=== PATIENT | male | born 1975 | race Caucasian/White ===

== ENCOUNTER 2016-12-14 14:25 | Emergency (ER) | payer OTHER ==
[2016-12-14 14:40] VITALS: BP 155/90; PULSE 60; TEMP 97.9; BMI 25.1
[2016-12-14] MEDS ORDERED: diazePAM 5 MG TABLET PO ONE (14:54)
[2016-12-14] MEDS ORDERED: KETOROLAC TROMETHAMINE 60 MG/2 ML VIAL IM ONE (14:54)
[2016-12-14] MEDS ORDERED: KETOROLAC TROMETHAMINE 60 MG/2 ML VIAL ONE (14:56)
[2016-12-14] MEDS ORDERED: diazePAM 5 MG TABLET ONE (14:57)
--- NOTE | 2016-12-14 15:03 | PDOC ---
History of Present Illness - General Chief Complaint: Pain, Acute Stated Complaint: NECK PAIN Time Seen by Provider: 12/14/16 14:34 History Source: Patient Exam Limitations: No Limitations - History of Present Illness Initial Comments: 12/14/16 14:57 41 yr male with stiff neck for 2 months worse when waking up 2 months ago. Pt states pain is worse when sleeping. Pt denies injury states he played basketball 3 days ago and now pain got worse. no meds taken for pain. no fever, no sore throat, no previous injury. Past History - Past Medical History Allergies/Adverse Reactions: Allergies Allergy/AdvReac Type Severity Reaction Status Date / Time No Known Allergies Allergy Verified 12/14/16 14:35 Home Medications: Ambulatory Orders Cyclobenzaprine HCl [Flexeril 10 mg] 5 mg PO TID PRN #21 tablet 12/14/16 Naproxen [Naprosyn -] 500 mg PO BID PRN #14 tablet 12/14/16 Other medical history: denies - Family Disease History Comment:: 12/14/16 14:59 none - Psycho/Social/Smoking Cessation Hx Anxiety: No Suicidal Ideation: No Smoking History: Never smoked Have you smoked in the past 12 months: No Information on smoking cessation initiated: No Hx Alcohol Use: Yes (occasional) Drug/Substance Use Hx: No Substance Use Type: None Trauma Specific PMHX - Complaint Specific PMHX Arthritis: No Back Injury: No Neck Injury: No Hx Sacro Iliac Joint Dysfunction: No Review of Systems - Review of Systems Able to Perform ROS?: Yes Is the patient limited Lithuanian proficient: No Constitutional: No: Symptoms Reported HEENTM: No: Symptoms Reported Respiratory: No: Symptoms reported Cardiac (ROS): No: Symptoms Reported ABD/GI: No: Symptoms Reported : No: Symptoms Reported Musculoskeletal: Yes: See HPI, Neck Pain Integumentary: No: Symptoms Reported *Physical Exam - Vital Signs Last Vital Signs Temp Pulse Resp BP Pulse Ox 97.9 F 60 18 155/90 100 12/14/16 14:28 12/14/16 14:28 12/14/16 14:28 12/14/16 14:28 12/14/16 14:28 - Physical Exam General Appearance: Yes: Nourished, Appropriately Dressed HEENT: positive: EOMI, MARTIN, Normal ENT Inspection, TMs Normal, Pharynx Normal Neck: positive: Supple, Decreased range of motion, Tender lateral. negative: Tender, Rigidity, Tender midline Respiratory/Chest: positive: Chest Tender, Lungs Clear, Normal Breath Sounds Cardiovascular: positive: Regular Rhythm, Regular Rate Gastrointestinal/Abdominal: positive: Normal Bowel Sounds, Soft Musculoskeletal: positive: Normal Inspection Extremity: positive: Normal Capillary Refill, Normal Inspection, Normal Range of Motion ED Treatment Course - RADIOLOGY Radiology Studies Ordered: Category Date Time Status SPINE-CERVICAL [RAD] Stat Radiology 12/14/16 14:54 Ordered Medical Decision Making - Medical Decision Making 12/14/16 15:00 cc: neck pain for 2 months reproduced with lateral soft tissue touch, with movement side to side pain is worse no midline tenderness neg numbness or tingling will give toradol, valium and cspine xray pt is not driving home. *DC/Admit/Observation/Transfer Diagnosis at time of Disposition: Acute torticollis - Prescriptions Prescriptions: Cyclobenzaprine HCl [Flexeril 10 mg] 5 mg PO TID PRN #21 tablet PRN Reason: Muscle Spasms Naproxen [Naprosyn -] 500 mg PO BID PRN #14 tablet PRN Reason: Pain - Patient Instructions Additional Instructions: apply ice pack to the neck every 3hrs for 20 minutes for the next 2 days you can alternate with warm compresses take the prescribed muscle relaxant as directed take the pain medication as perescribed Do NOT DRIVE, OPERATE MACHINERY OR DRINK ALCOHOL WHILE TAKING THE MUSCLE RELAXANT follow with the orthopedist Dr. Ch for follow up
== END 2016-12-14 15:52 | disposition home or self-care (01) ==
LOC: JERFT 14:25
PROC: 3E0233Z Introduction of Anti-inflammatory into Muscle, Percutaneous Approach (ICD-10-PCS; principal; 2016-12-14)
DX: M43.6 Torticollis (principal)
CPT/HCPCS: 72050-TC; 96372; 99281-25